=== PATIENT | male | born 1990 | race Caucasian/White ===

== ENCOUNTER 2016-07-11 05:34 | Emergency (ER) | payer OTHER ==
[~2016-07-11] VITALS: Ht 182.9 cm; Wt 75.2 kg
[2016-07-11 05:40] VITALS: TEMP 36.9; Ht 182.9 cm; Wt 75.2 kg
--- NOTE | 2016-07-11 06:13 | EMERGENCY ROOM VISIT NOTE ---
History Report prepared by Michael: Mounika Alonzo Under the Supervision of: Dr. Al Castro M.D. 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 The patient states he woke up and his vision showed streaks of color which lasted for up to a minute. The patient states that currently his vision problems have resolve. He states he developed a headache 30 minutes later which has also resolve. The patient states that he felt as if his movement and walking was "jerky." He states he is currently experiencing some dizziness and tingling. The patient states he has had a cold for 4 days and has been taking NyQuil for his head cold in which he has congestion as well as a slight fever. The patient denies any nausea, vomiting, rashes, or neck stiffness. 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 Review of Systems See HPI for pertinent positives & negatives. A total of 10 systems reviewed and were otherwise negative. Past Medical & Surgical Surgical Problems: (1) [place] teeth extracted Family History Hypertension Social History Smoking Status: Never Smoker Marital Status: single Occupation Status: student Current/Historical Medications Scheduled Amoxicillin & Pot Clavulanate (Augmentin 875-125 mg), 875 MG PO BID Prednisone (Prednisone), 50 MG PO DAILY Sertraline (Zoloft), 100 MG PO DAILY Allergies Coded Allergies: Ibuprofen (Verified Allergy, Mild, itchey mouth, 07/11/16) Physical Exam Vital Signs Date Time Temp Pulse Resp B/P Pulse Ox O2 Delivery O2 Flow Rate FiO2 07/11/16 06:43 71 18 135/65 98 07/11/16 05:40 36.9 86 18 151/83 98 Room Air Physical Exam GENERAL: Patient is in moderate distress and mildly anxious. HEENT: No acute trauma, normocephalic atraumatic, mucous membranes moist, bilateral sinus congestion, no scleral icterus. NECK: No stridor, no adenopathy, no meningismus, trachea is midline. LUNGS: No dyspnea. Clear to auscultation and equal bilaterally. No wheeze, no rhonchi. HEART: Regular rate and rhythm. No murmurs, rubs, gallops appreciated. ABDOMEN: Soft, nontender, bowel sounds positive, no masses appreciated, no peritonitis. BACK: No midline tenderness, no CVA tenderness EXTREMITIES: Normal motion all extremities, no cyanosis, no edema. NEUROLOGIC: Alert and oriented, no acute motor or sensory deficits, no focal weakness, cranial nerves grossly intact. SKIN: No rash, no jaundice, no diaphoresis. Medical Decision & Procedures ER Provider Diagnostic Interpretation: CT results as stated below per interpretation by me and the radiologist: Preliminary Results Only--- See Final Report for Complete Findings: CT HEAD: No evidence of acute infarct. hemorrhage, mass or edema. Mild mucosal thickening of the paranasal sinuses. No acute osseous abnormality. Radiologist: Keegan Moe M.D. Study ready at 0616 and initial results transmitted at 0619 ED Course 0600: The patient was evaluated in room A9. A complete history and physical exam was performed. 0630: Reevaluated the patient. Discussed results and discharge instructions: He verbalized understanding and agreement. The patient is ready for discharge. Medical Decision Differential: Headache, Migraine, Cluster Headache, Seizure, Meningitis, Sinusitis, CO exposure, ICH/SAH, Infectious, Tumor, Sinus Thrombosis, Arterial Dissection, amongst other pathologies entertained. 26 yr old male arrives with vague neuro symptoms which almost sound like just wake-dreaming post REM sleep but with headache (now resolved) felt imaging reasonable which was fortunately negative. May be due to taking sinus congestion meds as well. Bit anxious but otherwise looks normal. CT head negative, neuro normal, fundoscopic exam normal, and no further symptoms. Possible complex migraine also in differential. No chemical exposures. No recent trauma nor dissection thrombus risk factors. Impression Primary Impression: Altered awareness, transient Additional Impressions: Left-sided headache Acute sinus infection Scribe Attestation The scribe's documentation has been prepared under my direction and personally reviewed by me in its entirety. I confirm that the note above accurately reflects all work, treatment, procedures, and medical decision making performed by me. Departure Information Dispostion Home / Self-Care Prescriptions Prednisone (PREDNISONE) 50 Mg Tab 50 MG PO DAILY for 5 Days, #5 TAB Prov: Al Castro M.D. 07/11/16 Amoxicillin & Pot Clavulanate (Augmentin 875-125 mg) 1 Tab Tab 875 MG PO BID for 7 Days, #14 TAB Prov: Al Castro M.D. 07/11/16 Referrals [facility] Forms HOME CARE DOCUMENTATION FORM, IMPORTANT VISIT INFORMATION, WORK / SCHOOL INSTRUCTIONS Patient Instructions ED Sinusitis No Abx, My [facility] Health Problem Qualifiers Additional Impressions: Acute sinus infection Sinusitis location: maxillary Recurrence: recurrent Qualified Codes: J01.01 - Acute recurrent maxillary sinusitis
[2016-07-11] MEDS ORDERED: SERT-234 PO (06:23)
[2016-07-11] MEDS ORDERED: AMOX875T PO (06:35)
[2016-07-11] MEDS ORDERED: PRED50TA PO (06:35)
[2016-07-11 06:43] VITALS: BP 135/65; PULSE 71; O2SAT 98
--- NOTE | 2016-07-11 07:11 | DIAGNOSTIC IMAGING REPORT ---
HEAD CT NONCONTRAST CT DOSE: 537.48 mGy.cm HISTORY: left sided headache, sudden onset TECHNIQUE: Multiaxial CT images of the head were performed without the use of intravenous contrast. Automated exposure control was utilized for this study. Comparison: None. Findings: Mild mucosal thickening within the ethmoid air cells. The mastoid air cells are clear. The calvarium and skull base are intact. The ventricles and sulci are within normal limits. There is no mass, hematoma, midline shift, or acute infarct. Impression: No acute intracranial abnormality. Electronically signed by: Chino Tony M.D. 07/11/2016 7:09 AM Dictated Date/Time: 07/11/2016 7:08 AM
== END 2016-07-11 06:44 | disposition home or self-care (01) ==
LOC: C.EDB 05:37 → C.EDA 06:44
DX: R40.4 Transient alteration of awareness (principal); R51 Headache; J01.01 Acute recurrent maxillary sinusitis; Z82.49 Family history of ischemic heart disease and other diseases of the circulatory system

== ENCOUNTER → 2016-07-19 | Outpatient (CLI) | payer OTHER ==
[~2016-07-19] MED LIST: AMOX875T PO; SERT-234 PO
--- NOTE | 2016-07-19 23:03 | DIAGNOSTIC IMAGING REPORT ---
Brain MRI WITHOUT CONTRAST HISTORY: PARTIAL EPILEPSY W/COMPLEX PARTIAL SEIZURES, migraines TECHNIQUE: Multiplanar multisequence MRI of the brain was performed without the use of contrast. COMPARISON STUDY: Head CT 07/11/2016. FINDINGS: There are no areas of restricted diffusion to suggest acute infarction. The midline structures are intact. The paranasal sinuses are clear. The mastoid air cells are clear. The ventricles and sulci are within normal limits for age. There is no mass, hematoma, midline shift. The major vascular flow-voids at the skull base are well maintained. IMPRESSION: No acute intracranial abnormality. Electronically signed by: Chino Tony M.D. 07/20/2016 9:14 AM Dictated Date/Time: 07/19/2016 10:59 PM
== END | disposition home or self-care (01) ==
LOC: C.MRI 20:55
PROVIDERS: ATTEND General Practice
DX: G40.209 Localization-related (focal) (partial) symptomatic epilepsy and epileptic syndromes with complex partial seizures, not intractable, without status epilepticus (principal); G43.109 Migraine with aura, not intractable, without status migrainosus; R20.2 Paresthesia of skin

== ENCOUNTER → 2016-08-30 | Outpatient (CLI) | payer OTHER ==
[~2016-08-30] MED LIST changes: -AMOX875T PO; +GADAVIST IV PRN
--- NOTE | 2016-08-30 15:33 | DIAGNOSTIC IMAGING REPORT ---
CERVICAL SPINE MRI WITH AND WITHOUT CONTRAST HISTORY: R20.2 Paresthesia of both gausnG16.2 Neck pain TECHNIQUE: Multiplanar multisequence MRI of the cervical spine was performed both before and after the use of intravenous contrast. COMPARISON STUDY: None. FINDINGS: Slight reversal of the normal lordotic curvature. No fracture subluxation. Disc spaces are preserved. There is a 6 mm T1 and T2 hyperintense lesion within the C6 vertebral body consistent with a hemangioma. Otherwise, no abnormal enhancement within the cervical spine. The cervical spinal cord is normal in course, caliber, and signal intensity. The visualized posterior fossa is unremarkable. Prevertebral soft tissues and the C1-C2 interval are intact. No disc herniations. No significant central canal or neural foraminal narrowing. IMPRESSION: Slight reversal of the normal lordotic curvature of the cervical spine. Otherwise, no significant abnormality identified within the cervical spine. Electronically signed by: Chino Tony M.D. 08/30/2016 3:32 PM Dictated Date/Time: 08/30/2016 3:26 PM
== END | disposition home or self-care (01) ==
LOC: C.MRI 13:19
PROVIDERS: ATTEND Physician Assistant
DX: M54.2 Cervicalgia (principal); R20.2 Paresthesia of skin

== ENCOUNTER → 2016-09-05 | Outpatient (CLI) | payer OTHER ==
[~2016-09-05] MED LIST changes: -GADAVIST IV PRN
--- NOTE | 2016-09-05 16:01 | EEG Procedure Note ---
EEG Procedure Note Date of Service Sep 05, 2016. Start / End Times Start Time: 2:24 PM End Time: 2:44 PM Referring Physician SHAWN Archer History This is a 26-year-old male with myoclonic jerking. EEG for further evaluation of possible seizure etiology Home Medication List Scheduled Sertraline (Zoloft), 100 MG PO DAILY Description This is a 21 electrode EEG with a single channel dedicated to limited EKG. The electrodes were placed in accordance with the International 10-20 system. At the start of the recording the patient was in an awake state. Background was well organized and composed of symmetric mixed alpha and beta frequencies. There was a symmetric well-formed moderate amplitude 9-10 Hz posterior dominant rhythm that was reactive to eye opening and closure. Hyperventilation hyperventilation was not done. Intermittent photic stimulation at various frequencies produced no abnormalities. Drowsiness was indicated by loss of muscle artifact and slowing of the background rhythm. There was no sleep transients Interpretation This is a normal awake and drowsy routine EEG. There was no electrographic seizures or epileptiform discharges. Clinical Correlation A normal EEG does not rule out epilepsy if there is a strong clinical suspicion.
== END | disposition home or self-care (01) ==
LOC: C.NEUR 14:14
PROVIDERS: ATTEND Physician Assistant
DX: G25.3 Myoclonus (principal)

== ENCOUNTER 2016-12-26 07:35 | Day surgery (SDC) | payer OTHER ==
[~2016-12-26] VITALS: Ht 182.9 cm; Wt 74.0 kg
[2016-12-26] VITALS (7 sets, daily range): BP systolic 111–144; BP diastolic 51–75; PULSE 54–77; TEMP 36.6–37.1; O2SAT 97–100; Ht 182.9 cm; Wt 74.0 kg
--- NOTE | 2016-12-26 09:36 | Discharge Instructions ---
Discharge Instructions Procedure Procedure Date: Dec 26, 2016. Reason for visit: [place], Numbness B/L Hands, Vision Disturbance. Discharge Discharge Date: Dec 26, 2016. Discharge Diagnosis: headaches Instructions Activity Recommendations: 1 Day-May resume regular activity, 48 Hours of decreased exertion, 1 Day with no driving/machine use Return to School/Work: no limitations Recommended Home Diet: Resume Previous Diet Provider Instructions: Lumbar Puncture performed with Fluoroscopic guidance [l45 ] level with 22[ ] needle. No complications. Allergies Coded Allergies: Ibuprofen (Verified Allergy, Mild, itchy mouth, 12/26/16) [place] Recommendations: Call your doctor if: * Temperature above 101 degrees * Pain not relieved by pain medicine ordered * There is increased drainage or redness from any incision * You have any unanswered questions or concerns. Your Doctors Instructions noted above were prepared by provider Robbie Lewis. Patient Signature Section: Patient Instructions Signature Page Haresh Juan Patient (or Guardian) Signature/Date: I have read and understand the instructions given to me by my caregivers. Caregiver/RN/Doctor Signature/Date: The above-named patient and/or guardian has received patient instructions on this date. + Original Patient Signature Page (only) stays with chart. Please make copy for patient.
--- NOTE | 2016-12-26 09:39 | DIAGNOSTIC IMAGING REPORT ---
LUMBAR PUNCTURE DIAGNOSTIC CLINICAL HISTORY: PAPILLEDEMA CHRONIC HEADACHES headache FLUOROSCOPY TIME: 6 seconds PROCEDURE: The procedure, risks and benefits were discussed with the patient including the risk of spinal headache, bleeding and infection. The patient agreed to the procedure and informed written consent was obtained. The procedure was performed by Dr. Lewis following a timeout. The left L4-L5 interlaminar space was targeted. Skin overlying the space was prepped and draped in the usual sterile fashion and local anesthesia was achieved with 1% lidocaine. Under intermittent fluoroscopic guidance, a 20-gauge x 3 1/2 in. Sprotte needle was inserted into the thecal sac. A total of 10 cc of clear, colorless cerebral spinal fluid was obtained and spread amongst 4 vials. The patient tolerated the procedure well. There were no immediate complications. The specimens were sent to the laboratory at the request of the referring physician. Opening pressure 9 mmHg IMPRESSION: Successful fluoroscopic guided lumbar puncture with removal of 10 cc of clear, colorless cerebral spinal fluid. No immediate complications. Opening pressure 9 mmHg The above report was generated using voice recognition software. It may contain grammatical, syntax or spelling errors. Electronically signed by: Robbie Lewis M.D. 12/26/2016 9:38 AM Dictated Date/Time: 12/26/2016 9:37 AM
[2016-12-26] MEDS ORDERED: ACETAMINOPHEN 500 MG TAB PO PRN (09:45)
[2016-12-26 10:05] LABS: CSF TOTAL PROTEIN 40.4 mg/dl (15.0-45.0)
[2016-12-26 10:26] LABS: CSF APPEARANCE CLEAR; CSF COLOR COLORLESS; CSF XANTHOCHROMIC NO XANTHOCHROMIA
[2017-01-01 08:00] LABS: LYME DNA PCR CSF OR SYNOVIAL Not detected (Not Detected); LYME DNA SOURCE CSF; LYME IGG CSF NO BANDS DETECTED; LYME IGM CSF NO BANDS DETECTED
[2017-01-02 04:31] LABS: ALBUMIN 4.8 g/dL (3.7-5.1); IGG CSF 1.6 mg/dL (0.8-7.7); IGG SERUM 912 mg/dL (694-1618); MYELIN BASIC PROTEIN 663 <2.0 mcg/L (0.0-4.0)
== END 2016-12-26 13:28 | disposition home or self-care (01) ==
LOC: C.ACU 07:35
PROVIDERS: ATTEND Psychiatry & Neurology Neurology
DX: R51 Headache (principal); H47.11 Papilledema associated with increased intracranial pressure